=== PATIENT | female | born 1960 | race Caucasian/White ===

== ENCOUNTER 2016-11-30 22:44 | Emergency (ER) | payer SELFPAY ==
[2016-12-01] MEDS ORDERED: ONDANSETRON 4 MG TAB.RAPDIS PO ONE (00:19)
[2016-12-01] MEDS ORDERED: HYDROXYZINE PAMOATE 25 MG CAPSULE PO ONE (00:19)
[2016-12-01] MEDS ORDERED: HYDROXYZINE PAMOATE 50 MG CAPSULE PO ONE (00:20)
--- NOTE | 2016-12-01 00:22 | ER Document Report ---
ED GI/ - General Chief Complaint: Urinary Problem Stated Complaint: ABDOMINAL PAIN/HAND SWELLING Time seen by provider: 00:20 Notes: Patient is a 56-year-old female that comes emergency department with multiple complaints, chief complaint is sensation of abdominal swelling and abdominal pains, patient states her whole abdomen hurts. Patient states that she was having nausea and she "kind of threw up a little bit earlier". Or chills, denies injuries, states she had a normal bowel movement yesterday. She states she has had a colonoscopy which was normal, denies any abdominal surgeries. Patient denies any daily medications. Patient also has random complaints including occasional swelling in her hands (which she does not currently report having), occasional back pain (which she does not currently have), etc. TRAVEL OUTSIDE OF THE [place] IN LAST 30 DAYS: No - Related Data Allergies/Adverse Reactions: codeine Allergy (Verified 10/11/16 00:49) Sulfa (Sulfonamide Antibiotics) Allergy (Verified 10/11/16 00:49) tramadol Allergy (Verified 10/11/16 00:49) Past Medical History - General Information source: Patient - Social History Smoking Status: Never Smoker Chew tobacco use (# tins/day): No Frequency of alcohol use: None Drug Abuse: None Lives with: Friend Family History: Reviewed & Not Pertinent Patient has suicidal ideation: No Patient has homicidal ideation: No - Past Medical History Cardiac Medical History: Reports: Hx Hypertension Renal/ Medical History: Denies: Hx Peritoneal Dialysis Surgical Hx: Negative - Immunizations Hx Diphtheria, Pertussis, Tetanus Vaccination: Yes Review of Systems - Review of Systems Constitutional: No symptoms reported EENT: No symptoms reported Cardiovascular: No symptoms reported Respiratory: No symptoms reported Gastrointestinal: See HPI Genitourinary: See HPI Female Genitourinary: No symptoms reported Musculoskeletal: No symptoms reported Skin: No symptoms reported Hematologic/Lymphatic: No symptoms reported Neurological/Psychological: No symptoms reported Physical Exam - Vital signs Vitals: Temp Pulse Resp BP Pulse Ox 97.7 F 88 18 160/120 H 97 11/30/16 23:15 11/30/16 23:15 11/30/16 23:15 11/30/16 23:15 11/30/16 23:15 Interpretation: Normal - General General appearance: Appears well, Alert In distress: None - Alert and well-appearing - HEENT Head: Normocephalic, Atraumatic Eyes: Normal Pupils: PERRL - Respiratory Respiratory status: No respiratory distress Chest status: Nontender Breath sounds: Normal Chest palpation: Normal - Cardiovascular Rhythm: Regular Heart sounds: Normal auscultation Murmur: No - Abdominal Inspection: Normal Distension: Distended - Mild questionable distention Bowel sounds: Normal Tenderness: Tender - Very mild generalized tenderness - Back Back: Normal, Nontender - Extremities General upper extremity: Normal inspection, Nontender, Normal color, Normal ROM , Normal temperature General lower extremity: Normal inspection, Nontender, Normal color, Normal ROM , Normal temperature, Normal weight bearing. No: Sharan's sign - Neurological Neuro grossly intact: Yes Cognition: Normal Orientation: AAOx4 Margareth Coma Scale Eye Opening: Spontaneous Margareth Coma Scale Verbal: Oriented Margareth Coma Scale Motor: Obeys Commands Margareth Coma Scale Total: 15 Speech: Normal Motor strength normal: LUE, RUE, LLE, RLE Sensory: Normal - Psychological Associated symptoms: Normal affect, Normal mood - Skin Skin Temperature: Warm Skin Moisture: Dry Skin Color: Normal Course - Re-evaluation Re-evalutation: Patient does have a slightly distended and mildly tender abdomen on examination , nonspecific with no guarding, x-ray is consistent with large stool load with no obstructive findings or evidence of ileus, CBC and chemistry are normal, urine shows large leukocyte esterase and white blood cells. Patient is again well-appearing on reexamination. Patient declines enema, magnesium citrate, states she wants prescription of a stool softener. Patient will be provided with this, provided with treatment of urinary tract infection, referred to local primary care for management of asymptomatic hypertension, patient also asks for ibuprofen to take for joint pain which she has intermittently. Discussed return precautions, patient and friend at bedside state understanding and agreement. - Vital Signs Vital signs: Temp Pulse Resp BP Pulse Ox 97.8 F 89 18 160/114 H 98 12/01/16 03:48 12/01/16 03:48 12/01/16 03:48 12/01/16 03:48 12/01/16 03:54 - Laboratory Result Diagrams: 12/01/16 01:30 12/01/16 01:30 Laboratory results interpreted by me: 12/01/16 00:50 Ur Leukocyte Esterase LARGE H Discharge - Discharge Clinical Impression: Abdominal pain Qualifiers: Abdominal location: generalized Qualified Code(s): R10.84 - Generalized abdominal pain Urinary tract infection Qualifiers: Urinary tract infection type: site unspecified Hematuria presence: without hematuria Qualified Code(s): N39.0 - Urinary tract infection, site not specified Condition: Stable Disposition: HOME, SELF-CARE Additional Instructions: Your workup shows a urinary tract infection and constipation, this is consistent with your symptoms and physical examination. Take the Cipro antibiotic as directed, take the Colace stool softener 1-2 times a day until he began to move her bowels, afterwards stop and eat more fiber, hydrate. Follow up with primary care. Take ibuprofen if needed for pain/swelling of your joints. Take with food. Your blood pressure was elevated tonight. Please follow up with the referral to the community clinic for recheck and additional management. Return to the emergency department for any concerning or worsening symptoms. Prescriptions: Ibuprofen [Motrin 600 mg Tablet] 600 mg PO Q8HP PRN #24 tablet PRN Reason: Ciprofloxacin HCl [Cipro 500 mg Tablet] 500 mg PO BID #10 tablet Docusate Sodium [Colace 100 mg Capsule] 100 mg PO ASDIR PRN #30 capsule PRN Reason: Referrals: [facility] [Provider Group] - Follow up in 1 week
[2016-12-01 01:25] LABS: APPEARANCE,URINE SLIGHTLY-CLOUDY; BILIRUBIN,URINE NEGATIVE (NEGATIVE); GLUCOSE, URINE NEGATIVE (NEGATIVE); KETONES,URINE NEGATIVE (NEGATIVE); LEUKOCYTE ESTERASE,URINE LARGE (NEGATIVE); NITRITE,URINE NEGATIVE (NEGATIVE); PROTEIN,URINE NEGATIVE (NEGATIVE); URINE SPECIFIC GRAVITY 1.019; UROBILINOGEN,URINE NEGATIVE mg/dL (<2.0)
[2016-12-01 01:44] LABS: ABSOLUTE BASOPHILS # (AUTO) 0.1 10^3/uL (0.0-0.2); ABSOLUTE EOSINOPHILS # (AUTO) 0.2 10^3/uL (0.0-0.6); ABSOLUTE LYMPHOCYTES (AUTO) 2.8 10^3/uL (0.5-4.7); ABSOLUTE MONOCYTES (AUTO) 0.7 10^3/uL (0.1-1.4); ABSOLUTE NEUT (AUTO) 3.3 10^3/uL (1.7-8.2); BASOPHILS % (AUTO) 0.9 % (0-2); EOSINOPHILS % (AUTO) 2.2 % (0-6); HEMOGLOBIN 13.3 g/dL (12.0-15.5); HGB HCT DIFFERENCE 0.9; LYMPHOCYTES % (AUTO) 39.8 % (13-45); MEAN CORPUSCULAR HEMOGLOBIN 31.2 pg (27.0-33.4); MEAN CORPUSCULAR HGB CONC 34.1 g/dL (32.0-36.0); MEAN CORPUSCULAR VOLUME 92 fl (80-97); MONOCYTES % (AUTO) 10.5 % (3-13); RED BLOOD COUNT 4.26 10^6/uL (3.72-5.28); RED CELL DISTRIBUTION WIDTH 12.8 % (11.5-14.0); SEGMENTED NEUTROPHILS % (AUTO) 46.6 % (42-78); WHITE BLOOD COUNT 7.1 10^3/uL (4.0-10.5)
[2016-12-01 02:02] LABS: ALANINE AMINOTRANSFERASE 39 U/L (9-52); ALBUMIN 4.2 g/dL (3.5-5.0); ALKALINE PHOSPHATASE 81 U/L (38-126); ANION GAP 10 (5-19); ASPARTATE AMINO TRANSFERASE 27 U/L (14-36); BILIRUBIN,TOTAL 0.4 mg/dL (0.2-1.3); BLOOD UREA NITROGEN 20 mg/dL (7-20); CALCIUM 9.6 mg/dL (8.4-10.2); CARBON DIOXIDE 25 mmol/L (22-30); CHLORIDE 104 mmol/L (98-107); CREATININE RESULT 0.67 mg/dL (0.52-1.25); GLUCOSE 103 mg/dL (75-110); POTASSIUM 4.2 mmol/L (3.6-5.0); SODIUM 139.1 mmol/L (137-145)
[2016-12-01] MEDS ORDERED: CIPROFLOXACIN HCL 500 MG TABLET PO ONE (02:36)
[2016-12-01 03:54] VITALS: BP 160/114
== END 2016-12-01 04:05 | disposition home or self-care (01) ==
LOC: ER 22:44
DX: R10.84 Generalized abdominal pain (principal); N39.0 Urinary tract infection, site not specified; R14.0 Abdominal distension (gaseous); R11.0 Nausea; I10 Essential (primary) hypertension; Z88.6 Allergy status to analgesic agent; Z88.2 Allergy status to sulfonamides
CPT/HCPCS: 99284; 36415; 85025; 80053; 81001; 74022; S0119

== ENCOUNTER 2017-02-04 02:24 | Emergency (ER) | payer SELFPAY ==
[2017-02-04] MEDS ORDERED: ONDANSETRON HCL INJ/PF 4 MG/2 ML SDV IV ONE (03:50)
[2017-02-04] MEDS ORDERED: KETOROLAC TROMETHAMINE INJ/PF 30 MG/1 ML SDV IV ONE (03:50)
--- NOTE | 2017-02-04 03:52 | ER Document Report ---
ED GI/ - General Chief Complaint: Flank Pain Stated Complaint: FLANK PAIN Mode of Arrival: Ambulatory Information source: Patient TRAVEL OUTSIDE OF THE [place] IN LAST 30 DAYS: No - HPI Patient complains to provider of: Abdominal pain Notes: 02/04/17 03:51 Patient has complaints of abdominal cramping and right flank pain started earlier today. She states she has had a few episodes of nausea and vomiting and diarrhea. No blood in her vomit or stools. She denies any dysuria or hematuria. She has a history of gallstones as well as kidney stones. She denies any fever. No chest pain or shortness breath. No rash. She denies any numbness tingling or weakness. She has no other complaints at this time. Nothing makes her pain better or worse. Patient also complains of some mild dysuria. No hematuria. No vaginal bleeding or discharge. 02/04/17 05:55 - Related Data Allergies/Adverse Reactions: codeine Allergy (Verified 10/11/16 00:49) Sulfa (Sulfonamide Antibiotics) Allergy (Verified 10/11/16 00:49) tramadol Allergy (Verified 10/11/16 00:49) Past Medical History - Social History Smoking Status: Unknown if Ever Smoked Family History: Reviewed & Not Pertinent Patient has suicidal ideation: No Patient has homicidal ideation: No - Past Medical History Cardiac Medical History: Reports: Hx Hypertension Renal/ Medical History: Denies: Hx Peritoneal Dialysis - Immunizations Hx Diphtheria, Pertussis, Tetanus Vaccination: Yes Review of Systems - Review of Systems -: Yes All other systems reviewed and negative Physical Exam - Vital signs Vitals: Temp Pulse Resp BP Pulse Ox 98.1 F 79 18 169/109 H 100 02/04/17 02:51 02/04/17 02:51 02/04/17 02:51 02/04/17 02:51 02/04/17 02:51 - Notes Notes: GENERAL: alert, cooperative, nontoxic, no distress. HEAD: normocephalic, atraumatic EYES: conjunctiva pink without discharge, no external redness or swelling. EARS: no external swelling, no external redness NOSE: atraumatic, no external swelling MOUTH/THROAT: mucous membranes moist and pink, posterior pharynx without erythema, swelling, exudate. No trismus or drooling. NECK: soft, supple, full range of motion, no meningismus. CHEST: no distress, lungs clear and equal throughout. No wheezing, rales, rhonchi. CARDIAC: regular rate and rhythm, no murmur, normal capillary refill, normal pulses. No peripheral edema noted. ABDOMEN: Soft, mild generalized tenderness to palpation with right-sided CVA tenderness. Rebound tenderness or guarding. BACK: full range of motion. EXTREMITIES: full range of motion of all extremities. No redness, no swelling. NEURO: alert and oriented -3, no focal deficits, full range of motion of all extremities. PYSCH: appropriate mood, affect. Patient is cooperative. SKIN: pink, warm, dry, no rash. Course - Re-evaluation Re-evalutation: 02/04/17 05:55 Patient's nontoxic appearing with stable vitals. Patient has nonspecific flank and right upper and lower abdominal pain. She is a very benign exam. Urine shows possible mild urinary tract infection certainly no pyelonephritis. CT shows no acute abnormalities. The patient is resting comfortably at this time. The patient will be discharged home with a prescription for Macrobid for possible UTI, Zofran for nausea, Voltaren for pain. She states that she thinks she has gallstones and needs to be evaluated for gallstones, I will refer her to surgery who can evaluate her for possible gallstones and she states she's had these in the past and they have had to have them blasted in the past. She is no signs of acute cholecystitis and her exam is not consistent with that at this time. The patient is noted to have elevated blood pressure during today's emergency department visit. The patient was informed of this finding. The patient was instructed that this may be related to pre-hypertension and requires further evaluation with a primary care provider. The patient has no hypertensive symptoms at this time. The patient's emergency department workup and current diagnosis were explained to the patient and or family. Follow-up instructions were provided. Medications if prescribed were discussed. Instructions for when to return to the emergency department including specific worrisome symptoms were discussed with the patient and/or family. 02/04/17 05:58 The patient's evaluation of abdominal pain showed no obvious reason for pain during this emergency department visit today. I explained that there is the possibility that there could be a serious reason for the abdominal pain that was not discovered with today's workup. I stressed the importance of close observation as well as close follow-up for re-evaluation of the abdominal pain. The patient and/or family verbalized understanding of these instructions. He will be instructed to return immediately to the emergency department for increased abdominal pain, persistent vomiting, blood in vomit or stool, or any other change in symptoms or concerns. - Vital Signs Vital signs: Temp Pulse Resp BP Pulse Ox 98.1 F 79 18 169/109 H 100 02/04/17 02:51 02/04/17 02:51 02/04/17 02:51 02/04/17 02:51 02/04/17 02:51 - Laboratory Result Diagrams: 02/04/17 04:15 02/04/17 04:15 Laboratory results interpreted by me: 02/04/17 02/04/17 04:15 04:50 Seg Neutrophils % 40.5 L Lymphocytes % 47.1 H Urine Blood SMALL H Ur Leukocyte Esterase TRACE H - Diagnostic Test Radiology reviewed: Image reviewed, Reports reviewed - CT pelvis without acute findings. Discharge - Discharge Clinical Impression: Abdominal pain Qualifiers: Abdominal location: unspecified location Qualified Code(s): R10.9 - Unspecified abdominal pain Urinary tract infection Qualifiers: Urinary tract infection type: acute cystitis Hematuria presence: without hematuria Qualified Code(s): N30.00 - Acute cystitis without hematuria Condition: Stable Disposition: HOME, SELF-CARE Instructions: Abdominal Pain ([facility]), Urinary Tract Infection ([facility]) Additional Instructions: Take medications as prescribed. Drink lots of fluids. Follow-up if not better in the next 2-3 days, follow-up sooner for increased pain, fever, persistent vomiting, or any further concerns. Your blood pressure was elevated during today's visit. Have this rechecked with your doctor. Prescriptions: Diclofenac Sodium [Voltaren] 75 mg PO BID #20 tablet. Nitrofurantoin Monohyd/M-Cryst [Macrobid 100 mg Capsule] 100 mg PO BID #10 capsule Ondansetron HCl [Zofran 4 mg Tablet] 1 tab PO Q6H PRN #10 tablet PRN Reason: Forms: Elevated Blood Pressure Referrals: CHRIS PATRICIA MD [KYLE PEÑA] - Follow up as needed
[2017-02-04 04:39] LABS: ABSOLUTE BASOPHILS # (AUTO) 0.1 10^3/uL (0.0-0.2); ABSOLUTE EOSINOPHILS # (AUTO) 0.1 10^3/uL (0.0-0.6); ABSOLUTE LYMPHOCYTES (AUTO) 2.7 10^3/uL (0.5-4.7); ABSOLUTE MONOCYTES (AUTO) 0.5 10^3/uL (0.1-1.4); ABSOLUTE NEUT (AUTO) 2.3 10^3/uL (1.7-8.2); EOSINOPHILS % (AUTO) 2.1 % (0-6); HEMATOCRIT 38.3 % (36.0-47.0); HGB HCT DIFFERENCE 0.7; LYMPHOCYTES % (AUTO) 47.1 % (13-45); MEAN CORPUSCULAR VOLUME 91 fl (80-97); MONOCYTES % (AUTO) 9.3 % (3-13); RED BLOOD COUNT 4.21 10^6/uL (3.72-5.28); RED CELL DISTRIBUTION WIDTH 13.5 % (11.5-14.0); SEGMENTED NEUTROPHILS % (AUTO) 40.5 % (42-78); WHITE BLOOD COUNT 5.8 10^3/uL (4.0-10.5)
[2017-02-04 04:51] LABS: ALANINE AMINOTRANSFERASE 28 U/L (9-52); ALBUMIN 3.9 g/dL (3.5-5.0); ALKALINE PHOSPHATASE 67 U/L (38-126); ANION GAP 11 (5-19); ASPARTATE AMINO TRANSFERASE 17 U/L (14-36); BILIRUBIN,DIRECT 0.1 mg/dL (0.0-0.4); BILIRUBIN,TOTAL 0.4 mg/dL (0.2-1.3); BLOOD UREA NITROGEN 17 mg/dL (7-20); CALCIUM 9.4 mg/dL (8.4-10.2); CARBON DIOXIDE 28 mmol/L (22-30); CHLORIDE 106 mmol/L (98-107); GLUCOSE 97 mg/dL (75-110); LIPASE 178.1 U/L (23-300); POTASSIUM 4.5 mmol/L (3.6-5.0); SODIUM 144.6 mmol/L (137-145); TOTAL PROTEIN 6.5 g/dL (6.3-8.2)
[2017-02-04 05:37] LABS: APPEARANCE,URINE CLEAR; BILIRUBIN,URINE NEGATIVE (NEGATIVE); GLUCOSE, URINE NEGATIVE (NEGATIVE); KETONES,URINE NEGATIVE (NEGATIVE); LEUKOCYTE ESTERASE,URINE TRACE (NEGATIVE); NITRITE,URINE NEGATIVE (NEGATIVE); PROTEIN,URINE NEGATIVE (NEGATIVE); URINE SPECIFIC GRAVITY 1.014; UROBILINOGEN,URINE NEGATIVE mg/dL (<2.0)
[2017-02-04 07:16] VITALS: BP 136/94
== END 2017-02-04 07:16 | disposition home or self-care (01) ==
LOC: ER 02:24
DX: R10.11 Right upper quadrant pain (principal); R10.31 Right lower quadrant pain; R10.9 Unspecified abdominal pain; N30.00 Acute cystitis without hematuria; R11.2 Nausea with vomiting, unspecified; R19.7 Diarrhea, unspecified; I10 Essential (primary) hypertension; Z87.442 Personal history of urinary calculi; Z88.5 Allergy status to narcotic agent; Z88.2 Allergy status to sulfonamides
CPT/HCPCS: 99284; 96374; 96375; 36415; 83690; 85025; 80053; 81001; 76380; J1885; J2405

== ENCOUNTER 2017-02-08 04:12 | Emergency (ER) | payer SELFPAY ==
[2017-02-08 04:46] VITALS: BP 154/101
== END 2017-02-08 07:21 | disposition left against medical advice (07) ==
LOC: ER 04:12
DX: Z53.9 Procedure and treatment not carried out, unspecified reason (principal); R10.9 Unspecified abdominal pain

== ENCOUNTER 2017-02-10 00:24 | Emergency (ER) | payer SELFPAY ==
[2017-02-10] MEDS ORDERED: MAG HYDROX/AL HYDROX/SIMETH SUSP 30 ML UDCUP PO ONE (02:00)
[2017-02-10] MEDS ORDERED: LIDOCAINE 2% VISCOUS SOLN 20 ML UDCUP PO ONE (02:00)
--- NOTE | 2017-02-10 02:02 | ER Document Report ---
ED GI/ - General Chief Complaint: Abdominal Problem Stated Complaint: ABDOMINAL PAIN Mode of Arrival: Ambulatory Information source: Patient Notes: Patient presents complaining of a week history of upper abdominal tenderness. Patient denies any nausea, vomiting or diarrhea. Patient states she felt warm but measuring temperature. Patient states she has a history of gallstones and suspects the same today. TRAVEL OUTSIDE OF THE [place] IN LAST 30 DAYS: No - HPI Patient complains to provider of: Abdominal pain. No: Diarrhea, Vomiting Onset: Last week Timing/Duration: Persistent Quality of pain: Burning, Sharp Pain Level: 4 Location: Epigastric, RUQ Vaginal bleeding (Compared to normal period): None Associated symptoms: Fever - Possible. denies: Diarrhea, Loss of appetite, Nausea, Urinary hesitancy, Urinary frequency, Vaginal discharge, Vomiting Exacerbated by: Denies Relieved by: Denies Similar symptoms previously: Yes - gallstones Recently seen / treated by doctor: No - Related Data Allergies/Adverse Reactions: codeine Allergy (Verified 02/10/17 00:26) ibuprofen [From Motrin] Allergy (Verified 02/10/17 00:26) Sulfa (Sulfonamide Antibiotics) Allergy (Verified 02/10/17 00:26) tramadol Allergy (Verified 02/10/17 00:26) Past Medical History - General Information source: Patient - Social History Smoking Status: Current Every Day Smoker Frequency of alcohol use: None Drug Abuse: None Lives with: Friend Family History: Reviewed & Not Pertinent Patient has suicidal ideation: No Patient has homicidal ideation: No - Past Medical History Cardiac Medical History: Reports: Hx Hypertension Renal/ Medical History: Denies: Hx Peritoneal Dialysis GI Medical History: Reports: Other - Gallstones Past Surgical History: Reports: Hx Tubal Ligation, Other - "Gallstone removal" - Immunizations Hx Diphtheria, Pertussis, Tetanus Vaccination: Yes Review of Systems - Review of Systems Constitutional: Fever - possible. denies: Recent illness EENT: No symptoms reported Cardiovascular: No symptoms reported. denies: Chest pain Respiratory: No symptoms reported. denies: Cough, Short of breath Gastrointestinal: Abdominal pain. denies: Diarrhea, Nausea, Vomiting Genitourinary: No symptoms reported. denies: Flank pain Female Genitourinary: No symptoms reported Musculoskeletal: No symptoms reported. denies: Back pain Skin: No symptoms reported Hematologic/Lymphatic: No symptoms reported Neurological/Psychological: No symptoms reported Physical Exam - Vital signs Vitals: Temp Pulse Resp BP Pulse Ox 97.8 F 79 18 160/111 H 123 H 02/10/17 00:28 02/10/17 00:28 02/10/17 00:28 02/10/17 00:28 02/10/17 00:28 - General General appearance: Appears well, Alert In distress: None - HEENT Head: Normocephalic, Atraumatic Eyes: Normal Conjunctiva: Normal Nasal: Normal Mouth/Lips: Normal Mucous membranes: Normal Pharynx: Normal Neck: Normal, Supple. No: Lymphadenopathy - Respiratory Respiratory status: No respiratory distress Chest status: Nontender Breath sounds: Normal. No: Rales, Rhonchi, Stridor, Wheezing Chest palpation: Normal - Cardiovascular Rhythm: Regular Heart sounds: S1 appreciated, S2 appreciated Murmur: No - Abdominal Inspection: Obese Distension: No distension Bowel sounds: Normal Tenderness: Tender - Epigastric, right upper quadrant Organomegaly: No organomegaly - Back Back: Normal, Nontender. No: CVA tenderness, Vertebra tenderness - Extremities General upper extremity: Normal inspection, Normal ROM General lower extremity: Normal ROM - Neurological Neuro grossly intact: Yes Cognition: Normal [place] Coma Scale Eye Opening: Spontaneous [place] Coma Scale Verbal: Oriented [place] Coma Scale Motor: Obeys Commands Margareth Coma Scale Total: 15 - Psychological Associated symptoms: Anxious - Skin Skin Temperature: Warm Skin Moisture: Dry Skin Color: Other - Skin ulceration to dorsal aspect of right foot Skin irregularity: other - Skin maceration between toes of right foot Course - Re-evaluation Re-evalutation: 02/10/17 05:16 Patient sleeping, arouses easily to voice. Patient states that her pain did improve after the GI cocktail that has started to gradually come back. Discussed results of patient's diagnostic tests with her. Patient advised that she'll need to see a primary doctor as well as a mill set up for further evaluation. Patient verbalized understanding and agrees with plan of care. - Vital Signs Vital signs: Temp Pulse Resp BP Pulse Ox 97.7 F 67 18 129/88 H 96 02/10/17 05:51 02/10/17 05:51 02/10/17 05:51 02/10/17 05:51 02/10/17 05:51 - Laboratory Result Diagrams: 02/10/17 03:40 02/10/17 03:40 Laboratory results interpreted by me: 02/10/17 03:40 Ur Leukocyte Esterase SMALL H Labs- Entire Visit 02/10/17 02/10/17 02/10/17 03:40 03:40 03:40 WBC 6.4 RBC 4.22 Hgb 13.1 Hct 38.7 MCV 92 MCH 31.1 MCHC 34.0 RDW 13.2 Plt Count 330 Seg Neutrophils % 48.8 Lymphocytes % 40.3 Monocytes % 8.9 Eosinophils % 1.3 Basophils % 0.7 Absolute Neutrophils 3.1 Absolute Lymphocytes 2.6 Absolute Monocytes 0.6 Absolute Eosinophils 0.1 Absolute Basophils 0.0 Sodium 143.0 Potassium 4.0 Chloride 104 Carbon Dioxide 29 Anion Gap 10 BUN 15 Creatinine 0.70 Est GFR ( Amer) > 60 Est GFR (Non-Af Amer) > 60 Glucose 101 Calcium 9.8 Total Bilirubin 0.5 Direct Bilirubin 0.3 Indirect Bilirubin Not Reportable Neonat Total Bilirubin Not Reportable AST 26 ALT 42 Alkaline Phosphatase 75 Total Protein 7.2 Albumin 4.1 Lipase 173.0 Urine Color STRAW Urine Appearance CLEAR Urine pH 6.0 Ur Specific [place] 1.009 Urine Protein NEGATIVE Urine Glucose (UA) NEGATIVE Urine Ketones NEGATIVE Urine Blood NEGATIVE Urine Nitrite NEGATIVE Urine Bilirubin NEGATIVE Urine Urobilinogen NEGATIVE Ur Leukocyte Esterase SMALL H Urine WBC (Auto) 12 Urine RBC (Auto) 2 Urine Bacteria (Auto) TRACE Squamous Epi Cells Auto 8 U Non-Squamous Epis Auto 2 Urine Mucus (Auto) RARE Urine Ascorbic Acid NEGATIVE 02/10/17 06:20 - Diagnostic Test Radiology reviewed: Reports reviewed Discharge - Discharge Clinical Impression: History of hypertension Abdominal pain Qualifiers: Abdominal location: unspecified location Qualified Code(s): R10.9 - Unspecified abdominal pain Condition: Stable Disposition: HOME, SELF-CARE Instructions: Abdominal Pain ([facility]), Reflux Disease (GERD) ([facility]) Additional Instructions: Return immediately for any new or worsening symptoms Followup with your primary care provider, call tomorrow to make a followup appointment Your blood pressure was elevated today, follow-up with primary doctor in 2 days to have it rechecked Keep your feet dry, wear sandals as much as possible Follow-up with the mill set up for further evaluation of abdominal tenderness Prescriptions: Omeprazole Magnesium [Prilosec Otc] 20 mg PO DAILY #15 tablet. Sucralfate [Carafate 1 gm Tablet] 1 gm PO ACHS #40 tablet Forms: Elevated Blood Pressure Referrals: [facility] [Provider Group] - Follow up as needed KALIN TRIVEDI MD [ACTIVE STAFF] - Follow up as needed SANTY SAWANT MD [ACTIVE STAFF] - Follow up as needed
[2017-02-10 03:50] LABS: ABSOLUTE EOSINOPHILS # (AUTO) 0.1 10^3/uL (0.0-0.6); ABSOLUTE LYMPHOCYTES (AUTO) 2.6 10^3/uL (0.5-4.7); ABSOLUTE MONOCYTES (AUTO) 0.6 10^3/uL (0.1-1.4); ABSOLUTE NEUT (AUTO) 3.1 10^3/uL (1.7-8.2); BASOPHILS % (AUTO) 0.7 % (0-2); EOSINOPHILS % (AUTO) 1.3 % (0-6); HEMATOCRIT 38.7 % (36.0-47.0); HEMOGLOBIN 13.1 g/dL (12.0-15.5); HGB HCT DIFFERENCE 0.6; LYMPHOCYTES % (AUTO) 40.3 % (13-45); MEAN CORPUSCULAR HEMOGLOBIN 31.1 pg (27.0-33.4); MEAN CORPUSCULAR VOLUME 92 fl (80-97); MONOCYTES % (AUTO) 8.9 % (3-13); RED BLOOD COUNT 4.22 10^6/uL (3.72-5.28); RED CELL DISTRIBUTION WIDTH 13.2 % (11.5-14.0); SEGMENTED NEUTROPHILS % (AUTO) 48.8 % (42-78); WHITE BLOOD COUNT 6.4 10^3/uL (4.0-10.5)
[2017-02-10 04:02] LABS: ALANINE AMINOTRANSFERASE 42 U/L (9-52); ALBUMIN 4.1 g/dL (3.5-5.0); ALKALINE PHOSPHATASE 75 U/L (38-126); ANION GAP 10 (5-19); ASPARTATE AMINO TRANSFERASE 26 U/L (14-36); BILIRUBIN,DIRECT 0.3 mg/dL (0.0-0.4); BILIRUBIN,TOTAL 0.5 mg/dL (0.2-1.3); BLOOD UREA NITROGEN 15 mg/dL (7-20); CALCIUM 9.8 mg/dL (8.4-10.2); CARBON DIOXIDE 29 mmol/L (22-30); CHLORIDE 104 mmol/L (98-107); GLUCOSE 101 mg/dL (75-110); TOTAL PROTEIN 7.2 g/dL (6.3-8.2)
[2017-02-10 04:20] LABS: APPEARANCE,URINE CLEAR; BILIRUBIN,URINE NEGATIVE (NEGATIVE); GLUCOSE, URINE NEGATIVE (NEGATIVE); KETONES,URINE NEGATIVE (NEGATIVE); LEUKOCYTE ESTERASE,URINE SMALL (NEGATIVE); NITRITE,URINE NEGATIVE (NEGATIVE); PROTEIN,URINE NEGATIVE (NEGATIVE); URINE SPECIFIC GRAVITY 1.009; UROBILINOGEN,URINE NEGATIVE mg/dL (<2.0)
[2017-02-10 05:57] VITALS: BP 129/88
--- NOTE | 2017-02-10 10:45 | EKG REPORT ---
SEVERITY:- NORMAL ECG - SINUS RHYTHM : Confirmed by: Cathy Garrett 10-Feb-2017 10:44:42
== END 2017-02-10 06:20 | disposition home or self-care (01) ==
LOC: ER 00:24
DX: R10.11 Right upper quadrant pain (principal); R10.13 Epigastric pain; I10 Essential (primary) hypertension; L97.519 Non-pressure chronic ulcer of other part of right foot with unspecified severity; Z87.19 Personal history of other diseases of the digestive system; Z88.5 Allergy status to narcotic agent; Z88.6 Allergy status to analgesic agent; Z88.2 Allergy status to sulfonamides; F17.200 Nicotine dependence, unspecified, uncomplicated; Z98.890 Other specified postprocedural states; Z90.710 Acquired absence of both cervix and uterus
CPT/HCPCS: 36415; 71020; 76705; 80053; 81001; 83690; 85025; 93005; 93010; 99285

== ENCOUNTER 2017-02-10 22:37 | Emergency (ER) | payer SELFPAY ==
--- NOTE | 2017-02-11 04:29 | ER Document Report ---
ED General - General Chief Complaint: Pain, itching all over Stated Complaint: ITCHING ALL OVER,MUTLIPLE PAINS Notes: Patient is a 56-year-old female who presents with diffuse body itching but no rash. In addition, she is saying that her epigastrium feels "funny" after she had a right upper quadrant ultrasound performed yesterday because she felt like her gallstones were "acting up." She had a negative ultrasound, labs and urine performed yesterday morning for similar symptoms. She is requesting Atarax for her itchiness. Patient has flight of ideas, but is redirectable. TRAVEL OUTSIDE OF THE [place] IN LAST 30 DAYS: No - Related Data Allergies/Adverse Reactions: codeine Allergy (Verified 02/10/17 00:26) ibuprofen [From Motrin] Allergy (Verified 02/10/17 00:26) Sulfa (Sulfonamide Antibiotics) Allergy (Verified 02/10/17 00:26) tramadol Allergy (Verified 02/10/17 00:26) Past Medical History - General Information source: Patient - Social History Smoking Status: Unknown if Ever Smoked Family History: Reviewed & Not Pertinent - Past Medical History Cardiac Medical History: Reports: Hx Hypertension Renal/ Medical History: Denies: Hx Peritoneal Dialysis Past Surgical History: Reports: Hx Tubal Ligation, Other - "Gallstone removal" - Immunizations Hx Diphtheria, Pertussis, Tetanus Vaccination: Yes Review of Systems - Review of Systems Notes: REVIEW OF SYSTEMS: CONSTITUTIONAL: -fevers, -chills EENT: -eye pain, -difficulty swallowing, -nasal congestion CARDIOVASCULAR:-chest pain, -syncope. RESPIRATORY: -cough, -SOB GASTROINTESTINAL: -abdominal pain, - nausea, -vomiting, -diarrhea GENITOURINARY: -dysuria, -hematuria MUSCULOSKELETAL: -back pain, -neck pain SKIN: -rash or skin lesions, +pruritis HEMATOLOGIC: -easy bruising or bleeding. LYMPHATIC: -swollen, enlarged glands. NEUROLOGICAL: -altered mental status or loss of consciousness, -headache, - neurologic symptoms PSYCHIATRIC: -anxiety, -depression. ALL OTHER SYSTEMS REVIEWED AND NEGATIVE. Physical Exam - Vital signs Vitals: Temp Pulse Resp BP Pulse Ox 97.5 F 85 21 H 150/108 H 94 02/10/17 23:31 02/10/17 23:31 02/10/17 23:31 02/10/17 23:31 04/24/17 23:31 - Notes Notes: PHYSICAL EXAMINATION: GENERAL: Well-appearing, well-nourished and in no acute distress. HEAD: Atraumatic, normocephalic. EYES: Pupils equal round and reactive to light, extraocular movements intact, sclera anicteric, conjunctiva are normal. ENT: nares patent, oropharynx clear without exudates. Moist mucous membranes. NECK: Normal range of motion, supple without lymphadenopathy LUNGS: Breath sounds clear to auscultation bilaterally and equal. No wheezes rales or rhonchi. HEART: Regular rate and rhythm without murmurs ABDOMEN: Soft, nontender, normoactive bowel sounds. No guarding, no rebound. No masses appreciated. EXTREMITIES: Normal range of motion, no pitting or edema. No cyanosis. NEUROLOGICAL: Cranial nerves grossly intact. Normal speech, normal gait. Normal sensory, motor, and reflex exams. PSYCH: Normal mood, normal affect. SKIN: Warm, Dry, normal turgor, no rashes or lesions noted. Course - Re-evaluation Re-evalutation: Patient does not have a rash and has no signs of anaphylaxis. Her ultrasound and labs done yesterday were completely unremarkable, including no evidence of gallstones or cholecystitis. Will discharge home with Atarax and follow-up with primary care physician. - Vital Signs Vital signs: Temp Pulse Resp BP Pulse Ox 97.5 F 85 21 H 150/108 H 94 02/10/17 23:31 02/10/17 23:31 02/10/17 23:31 02/10/17 23:31 02/10/17 23:31 Discharge - Discharge Clinical Impression: Pruritus Condition: Good Disposition: HOME, SELF-CARE Additional Instructions: ACUTE ALLERGIC REACTION: Your symptoms are due to an allergic reaction. Allergy can cause hives, swelling of the hands, feet, and face, hoarseness, and difficulty swallowing or breathing. It may be due to exposure to medication, animal dander, foods, infection, or insect bites. Medication is a common cause, even when prior use of this same medication caused no problems. Acute treatment may include adrenalin and antihistamines. Usually, the specific allergic agent can't be identified unless repeated episodes occur. Home treatment includes the following: (1) Stop any suspicious medications. This will be discussed with you. (2) Oral antihistamines for the next four to five days. Example, diphenhydramine (Benadryl) every four hours. (3) You may also use cimetidine (Tagamet), ranitidine (Zantac), or famotidine ( Pepcid) every four hours if diphenhydramine is not controlling itching and hives. (4) Avoid aspirin until the hives completely disappear. (5) Avoid hot baths or showers until the hives are completely gone. Call the doctor if faintness, difficulty swallowing, tightness in the chest , or wheezing occurs. ANTIHISTAMINES: An antihistamine has been given and/or prescribed to control your symptoms. Antihistamines are used for many reasons, including itching, watering eyes, runny nose, allergic swelling, hives, and insect stings. Antihistamines may cause drowsiness, especially with the first dose. Do not operate machinery or drive while under the effects of the medication. Other common side effects include dry mouth and eyes. In older persons, antihistamines can occasionally cause urinary retention, constipation, and trouble focusing the eyes. Do not combine the medication with alcohol, or with any other medication without talking to your doctor. USE OF DIPHENHYDRAMINE: The use of diphenhydramine (Benadryl) has been recommended to control allergic symptoms. The 25 mg strength is available over- the-counter, as well as the elixir. This antihistamine is used for many symptoms. It's useful for itching, watering eyes and nose, allergic swelling, hives, and insect stings. The medication can be repeated four times daily. Age Elixir (12.5 mg/tsp) 25 mg pill 2-3 yr 1/2 tsp 4-8 yr 1 tsp 9-14 yr 2 tsp one tab adult 1-2 tabs Antihistamines may cause drowsiness, especially with the first dose. Do not operate machinery or drive while under the effects of the medication. Do not combine the medication with alcohol, or with any other medication without talking to your doctor. FOLLOW-UP CARE: If you have been referred to a physician for follow-up care, call the physician s office for an appointment as you were instructed or within the next two days. If you experience worsening or a significant change in your symptoms, notify the physician immediately or return to the Emergency Department at any time for re-evaluation. Prescriptions: Hydroxyzine HCl [Atarax 25 mg Tablet] 1 - 2 tab PO QID #25 tablet
[2017-02-11] MEDS ORDERED: HYDROXYZINE HCL 10 MG TABLET PO ONE (04:32)
[2017-02-11] MEDS ORDERED: FAMOTIDINE 20 MG TABLET PO ONE (04:34)
[2017-02-11 04:44] VITALS: BP 150/108
== END 2017-02-11 04:48 | disposition home or self-care (01) ==
LOC: ER 22:37
DX: L29.9 Pruritus, unspecified (principal); I10 Essential (primary) hypertension; Z98.51 Tubal ligation status; Z88.6 Allergy status to analgesic agent; Z88.2 Allergy status to sulfonamides
CPT/HCPCS: 99282